=== PATIENT | female | born 1975 | race Caucasian/White ===

== ENCOUNTER → 2024-12-31 | Outpatient (CLI) | payer SELFPAY ==
[2025-01-01 17:26] LABS: Appearance, Urine Hazy (Clear); Bilirubin, Urine Neg (Neg); Blood, Urine 4+ (Neg); Glucose Qualitative, Urine Neg (Neg); Ketones, Urine Neg (Neg); Leukocyte Esterase, Urine Neg (Neg); Nitrite, Urine Neg (Neg); Protein, Urine 2+ (Neg); Urobilinogen, Urine NORM (Normal)
[2025-01-01 17:51] LABS: Color, Urine Pale Yellow (P-Yellow)
[2025-01-01 17:53] LABS: Amorphous Light (0-Heavy); Bacteria Mod /hpf; Squamous Epithelial Cells Few /hpf (Few)
== END | disposition home or self-care (01) ==
LOC: LAB SHORT 14:30 → LAB 14:30
PROVIDERS: Nurse Practitioner Family
DX: N39.0 Urinary tract infection, site not specified (principal); R30.0 Dysuria
CPT/HCPCS: 81001; 87077; 87086; 87186

== ENCOUNTER 2025-06-15 07:48 | Day surgery (SDC) | payer OTHER ==
[~2025-06-15] VITALS: Ht 167.6 cm; Wt 84.5 kg
[2025-06-15] MEDS ORDERED: CeFAZolin Sodium 2,000 MG VIAL ONE (08:16)
--- NOTE | 2025-06-15 08:25 | NUR ---
06/15/25 0825 Mirian Valdez 6ML LIDOCAINE 1% WITH EPI 1:100,[address] CALDERÓN. TIME OUT DONE PRIOR TO BLOCK. PT TOLERATED WELL.
[2025-06-15] MEDS ORDERED: LEVSOD88 PO (08:27)
[2025-06-15] MEDS ORDERED: NS 500 ML IV ONE (08:32)
[2025-06-15] MEDS ORDERED: Lidocaine 1%-Epineph 1:100000 20 ML MDV INJ ONE (09:19)
[2025-06-15] MEDS ORDERED: Sodium Bicarb 8.4% 1 MEQ/ML 50 ML Vial XX ONE (09:19)
--- NOTE | 2025-06-15 09:33 | NUR ---
06/15/25 0933 Eleanor Ureña PT. DENIES ANY PAIN.
[2025-06-15 09:42] VITALS: BP 124/79
== END 2025-06-15 10:04 | disposition home or self-care (01) ==
LOC: ORSCSDS 07:48
PROVIDERS: Orthopaedic Surgery
PROC: 01N54ZZ Release Median Nerve, Percutaneous Endoscopic Approach (ICD-10-PCS; principal; 2025-06-15 09:15)
DX: G56.03 Carpal tunnel syndrome, bilateral upper limbs (principal); E07.9 Disorder of thyroid, unspecified; E03.9 Hypothyroidism, unspecified; E66.9 Obesity, unspecified; Z68.30 Body mass index [BMI] 30.0-30.9, adult; Z79.899 Other long term (current) drug therapy
CPT/HCPCS: J0690; J2704; J7040